=== PATIENT | female | born 1935 | race Caucasian/White ===

== ENCOUNTER 2022-10-04 11:31 | Emergency (ER) | payer OTHER, BC ==
[2022-10-04 11:49] VITALS: RESP 18; TEMP 97.4; BMI 22.2
[2022-10-04 13:13] LABS: EOS % 3.4 % (0-4.5); HEMATOCRIT 36.9 % (32.4-45.2); MCH 29.8 pg (25.7-33.7); MCHC 32.6 g/dl (32.0-36.0); MEAN CELL VOLUME 91.3 fl (80-96); MEAN PLT VOLUME 8.3 fl (7.5-11.1); MONO % 12.2 % (3.8-10.2); NEUT % 63.4 % (42.8-82.8); PLATELET COUNT 215 10^3/uL (134-434); RBC 4.04 M/mm3 (3.60-5.2); RDW 14.3 % (11.6-15.6); WHITE BLOOD COUNT 6.5 K/mm3 (4.0-10.0)
[2022-10-04 13:26] LABS: EPI CELLS >36 /uL (0-25.1); HYALINE CASTS 5 /uL (0-3.1); PH,URINE 8.5 (5.0-8.0); URINE APPEARANCE CLOUDY; URINE BACTERIA >9,000 /uL (0-1359); URINE BILIRUBIN NEGATIVE (NEGATIVE); URINE COLOR YELLOW; URINE GLUCOSE (UA) NEGATIVE (NEGATIVE); URINE KETONE NEGATIVE (NEGATIVE); URINE LEUK ESTERASE 3+ (NEGATIVE); URINE NITRITE NEGATIVE (NEGATIVE); URINE PROTEIN 2+ (NEGATIVE); URINE RBC 8 /uL (0-23.9); URINE UROBILINOGEN 0.2 mg/dL (0.2-1.0); URINE WBC 1090 /uL (0-25.8)
[2022-10-04 13:33] LABS: CALCIUM 9.2 mg/dL (8.5-10.1)
[2022-10-04 13:35] LABS: ALBUMIN 3.5 g/dl (3.4-5.0); BLOOD UREA NITROGEN 41.4 mg/dL (7-18)
[2022-10-04 13:38] LABS: CREATININE 1.3 mg/dL (0.55-1.3)
[2022-10-04 13:39] LABS: BILIRUBIN,TOTAL 0.3 mg/dL (0.2-1); TOT PROT 7.1 g/dl (6.4-8.2)
[2022-10-04 15:14] VITALS: BP 127/50; PULSE 60
[2022-10-04] MEDS ORDERED: SULFAMETHOXAZOLE/TRIMETHOPRIM 800MG/160MG D.S. TABLET PO ONE (15:41)
[2022-10-04] MEDS ORDERED: SULFAMETHOXAZOLE/TRIMETHOPRIM 800MG/160MG D.S. TABLET ONE (15:48)
== END 2022-10-04 17:50 | disposition home or self-care (01) ==
LOC: JER 11:31
DX: S09.90XA Unspecified injury of head, initial encounter (principal); W19.XXXA Unspecified fall, initial encounter; Y92.9 Unspecified place or not applicable
CPT/HCPCS: 0241U-QW; 36415; 70450-TC; 71045-TC-FY; 72070-TC-FY; 72125-TC; 73564-TC-LT-FY; 80053; 81003; 84484; 85025; 87086; 87186; 93005; 93010; 99285-25